=== PATIENT | male | born 1965 | race Caucasian/White ===

== ENCOUNTER 2020-12-02 15:08 | Observation (INO) ==
[2020-12-02] MEDS ORDERED: 0.9 % SODIUM CHLORIDE 1,000 ML IV ONE ×2 (15:16→16:34)
[2020-12-02] MEDS ORDERED: ONDANSETRON 4 MG ODT TABLET SL ONE (15:16)
--- NOTE | 2020-12-02 15:22 | Emergency Department Note ---
Fall HPI General Chief Complaint: Fall Stated Complaint: fell from ladder Time Seen by Provider: 12/02/20 15:10 Source: patient, family, RN notes reviewed and old records reviewed Mode of arrival: wheelchair Limitations: no limitations History of Present Illness HPI Narrative: Narrative: Articulate and pleasant 55-year-old male complains of lower back pain status post fall. He was getting off a ladder into a [place]lo[place] had a slip and fall approximately 8 to 12 feet falling onto his back hitting his head with positive loss of consciousness. Complains of a headache and lower back pain. He was able to ambulate with assistance and to his vehicle where his drove him to the emergency department. EMS was not used is that they do not have cell phone coverage and could not avail themselves to it. Patient denies any loss of bowel or bladder control or loss of motor control. Describes as a mechanical fall and denies any preceding illness. MD Complaint: fall Onset (ago): hour(s) (2) Fall From: from height (distance) (8-12) Fall Witnessed: no Place Fall Occurred: home Loss of Consciousness: yes Prolonged Down Time?: no Symptoms Prior to Fall: none Context: tripped/slipped Location of injury: head and back Severity: moderate Quality: sharp and aching Associated symptoms (after fall): Reports headache and other (lower back pain); Denies neck pain, numbness, weakness, chest pain, shortness of breath, abdominal pain, hematuria, unable to walk, lightheaded, vertigo and confusion Related Data Home Medications Medication Instructions Recorded Confirmed cholecalciferol (vitamin D3) 50 2,000 unit PO QDAY 05/27/18 06/07/19 mcg (2,000 unit) capsule magnesium oxide 400 mg PO BID cap 05/27/18 06/07/19 omega-3 fatty acids-vitamin E 1,000 mg PO BID cap 05/27/18 06/07/19 1,000 mg capsule Previous Rx's Medication Instructions Recorded olmesartan 20 1 tab PO QDAY #90 tab 06/07/19 mg-hydrochlorothiazide 12.5 mg tablet omeprazole 20 mg capsule,delayed 20 mg PO QDAY #90 cap 06/07/19 release tamsulosin 0.4 mg capsule 0.4 mg PO QDAY #90 cap 01/17/20 simvastatin 20 mg tablet 20 mg PO QDAY #30 tab 02/21/20 methocarbamol 750 mg PO Q8H PRN #14 tab 12/02/20 oxycodone-acetaminophen [Percocet] 1 tab PO Q4H PRN #14 tab 12/02/20 Allergies Allergy/AdvReac Type Severity Reaction Status Date / Time Penicillins AdvReac Unknown Unknown Verified 12/02/20 15:17 Review of Systems ROS ROS Narrative: Narrative: All systems ED: reviewed and negative except as stated. 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) Arthritis (Chronic) Joint pain (Chronic) Sleep related leg cramps (Chronic) Restless leg syndrome (Chronic) Elevated LDH (Chronic) Liver disease (Chronic) Essential hypertension (Chronic) Hyperlipidemia (Chronic) Hyperglyceridemia (Chronic) Hemorrhoids (Chronic) Exercise counseling (Chronic) Esophageal reflux (Chronic) Circadian rhythm sleep disorder, irregular sleep wake type (Chronic) Cerumen impaction (Chronic) Benign neoplasm of skin (Chronic) Back pain (Chronic) Other specified congenital anomaly of skin (Chronic) Urinary hesitancy (Chronic) Obesity (Chronic) Urinary stream slowing (Chronic) Medical History Arthritis >15 years Back pain Benign neoplasm of skin skin of upper limb, including shoulder Bronchitis, acute Cerumen impaction Chest pain Circadian rhythm sleep disorder, irregular sleep wake type Contusion, back Dysfunctions of sleep stages or arousal from sleep Elevated blood pressure reading without diagnosis of hypertension Elevated LDH Esophageal reflux 2000 Essential hypertension 2008 Exercise counseling Foot sprain Gastritis, acute Hemorrhoids Hyperglyceridemia Hyperlipidemia Influenza with other manifestations Joint pain 2013 Liver disease Obesity Other specified congenital anomaly of skin Poor sleep Restless leg syndrome Sleep apnea Sleep related leg cramps Urinary hesitancy Urinary stream slowing Surgical History H/O hand surgery 05/31/19 Dr. Mckoy, left thumb History of esophagogastroduodenoscopy (02/20/11) Hx of vasectomy Family History Father , age 75 Hypertension Diabetes mellitus Alzheimer's disease Myocardial Infarction Brother , age 57 (1 of 4 brothers) Cerebrovascular accident (CVA) Unknown Coronary artery disease Congenital anomaly of heart Peripheral Vascular Disease Mother Malignant neoplasm of brain Social History Smoking Status: Never smoker Alcohol Intake Frequency: a few times a week Substance Use: does not use Exam Narrative Narrative: Narrative: General Limitations: no limitations General appearance: Present alert and in distress Head Head: Present atraumatic, normocephalic and normal inspection Eye Eye: Present normal appearance, PERRL and EOMI; Absent scleral icterus and conjunctival injection ENT ENT: Present normal exam, normal oropharynx and mucous membranes moist Neck Neck: Present trachea midline and other (Placed in c-collar upon arrival); Absent lymphadenopathy and thyromegaly Chest Chest: Present normal inspection and symmetric chest wall rise; Absent tenderness Respiratory Respiratory: Present normal lung sounds bilaterally; Absent respiratory distress, wheezes, stridor, accessory muscle use and prolonged expiratory phase Cardiovascular Cardiovascular: Present regular rate and normal rhythm; Absent systolic murmur and diastolic murmur Adbominal Abdominal: Present soft; Absent distention, tenderness, guarding, rebound, rigidity, organomegaly and mass Extremities Extremities: Present normal inspection, full ROM and normal capillary refill; Absent tenderness, pedal edema, pretibial edema and calf tenderness Back Back: Present tenderness and L-S tenderness; Absent CVA tenderness (R), CVA tenderness (L) and spinous process tenderness Neurological Neurological: Present alert and oriented X3 Psychiatric Psychiatric: Present normal affect and normal mood Skin Skin: Present warm (WNL) and dry Course Vital Signs Vital signs: Vital Signs Temperature 98.2 F 12/02/20 15:09 Pulse Rate 93 H 12/02/20 15:09 Respiratory Rate 18 12/02/20 15:09 Blood Pressure 135/82 12/02/20 15:09 Pulse Oximetry (%) 95 12/02/20 15:09 Temperature 98.2 F 12/02/20 15:09 Pulse Rate 81 12/02/20 15:46 Respiratory Rate 15 12/02/20 15:46 Blood Pressure 136/89 12/02/20 15:46 Pulse Oximetry (%) 96 12/02/20 15:46 MDM MDM Narrative Medical decision making narrative: Narrative: Patient with LOC and lower back pain. LS spine is positive for disc protrusion but no fractures or traumatic changes of the head CT is also negative. Patient received IV fluids IV pain medicines at discharge diagnosis is closed head injury and lumbar strain. The patient will be discharged with a prescription for Percocet and Robaxin and to follow-up with PMD. Radiology Data Radiology results reviewed: Yes I reviewed the patient's radiology results. Radiology results narrative: Head CT IMPRESSION: Normal head CT without contrast. C-spine CT IMPRESSION: 1. No fracture or other posttraumatic change 2. Mild degeneration stable T Spine Normal LS Spine CT IMPRESSION: No fracture or posttraumatic change L5-S1 moderate broad disc protrusion and facet arthropathy resulting in mild central canal and bilateral IV foraminal narrowing. 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 only: No Clinical Impression: CHI (closed head injury) Qualifiers: Encounter type: initial encounter Qualified Code(s): S09.90XA - Unspecified injury of head, initial encounter Lumbosacral strain Qualifiers: Encounter type: initial encounter Qualified Code(s): S39.012A - Strain of muscle, fascia and tendon of lower back, initial encounter Activity: resume usual activities as tolerated Instructions: Head Injury (ED), Acute Low Back Pain (ED), Lower Back Exercises (ED) Patient Disposition: Home, Self-Care Condition: Fair Follow up with: Danyell Diaz ARNP [Primary Care Provider] - Prescriptions: New oxycodone-acetaminophen [Percocet] 5-325 mg tablet 1 tab PO Q4H PRN (Reason: pain) Qty: 14 RF: 0 methocarbamol 750 mg tablet 750 mg PO Q8H PRN (Reason: back pain) Qty: 14 RF: 0 No Action tamsulosin 0.4 mg capsule 0.4 mg PO QDAY Qty: 90 RF: 0 simvastatin 20 mg tablet 20 mg PO QDAY Qty: 30 RF: 0 magnesium oxide 400 mg capsule 400 mg PO BID RF: 0 cholecalciferol (vitamin D3) 2,000 unit capsule 2,000 unit PO QDAY RF: 0 omega-3 fatty acids-vitamin E 1,000 mg capsule 1,000 mg PO BID RF: 0 olmesartan-hydrochlorothiazide 20-12.5 mg tablet 1 tab PO QDAY Qty: 90 RF: 3 omeprazole 20 mg capsule,delayed release(DR/EC) 20 mg PO QDAY Qty: 90 RF: 4
[2020-12-02] MEDS ORDERED: ONDANSETRON 4 MG/2 ML VIAL IV ONE (15:24)
[2020-12-02] MEDS: morphine 2 MG/ML VIAL IV PRN ×5 (15:45→18:48)
--- NOTE | 2020-12-02 16:09 | Cat Scan Report ---
CLINICAL INFORMATION: Trauma COMPARISON: Head CT 07/12/2016 TECHNIQUE: 2.5 mm helical slices were obtained in the skull base to vertex. Following reconstruction, axial reformatted images were reviewed at bone and parenchymal windows. The exam was performed using radiation dose optimization techniques including, but not limited to, automated exposure control, adjustment of the mA and/or kV according to patient size and use of iterative reconstruction technique. FINDINGS: The ventricles, sulci, fissures, and cisterns are normal in size and configuration. No extra-axial fluid collections are identified. The cerebrum, brainstem and cerebellum are unremarkable. There is no evidence of hemorrhage, mass effect, or edema. Bone windows show no osseous abnormality. IMPRESSION: Normal head CT without contrast. Interpreted and Authenticated by: Pranav Jaramillo 12/02/20
--- NOTE | 2020-12-02 16:13 | Cat Scan Report ---
CLINICAL INFORMATION: Trauma COMPARISON: 07/01/2016 TECHNIQUE: 0.625 mm helical slices were obtained from the skull base through the superior T2 end plate, and following reconstruction, 2.5 mm sagittal, coronal and axial reformations were then processed. The exam was reviewed at bone and soft tissue windows. The exam was performed using radiation dose optimization techniques including, but not limited to, automated exposure control, adjustment of the mA and/or kV according to patient size and use of iterative reconstruction technique. FINDINGS: The cervical spine is normal in curvature and alignment. No fracture identified. The cervical cord is normal in contour and caliber without evidence of hemorrhage or other abnormality. No soft tissue abnormality. The C2-3, C3-4, and C4-5 disc levels are normal. At C5-6, mild broad disc protrusion mildly impinges the thecal sac. No change At C6-7 mild broad disc protrusion mildly impinges the thecal sac no change C7-T1 disc level is normal IMPRESSION: 1. No fracture or other posttraumatic change 2. Mild degeneration stable Interpreted and Authenticated by: Pranav Jaramillo 12/02/20
--- NOTE | 2020-12-02 16:15 | Cat Scan Report ---
CLINICAL INFORMATION: Trauma COMPARISON: None. TECHNIQUE: 2.5 mm helical slices were obtained from the mid C7 through the mid L1 vertebral bodies. Following reconstruction, 2.5 mm sagittal, coronal and axial reformations , with and without disc space angling, were processed. The exam was reviewed at bone and soft tissue windows. The exam was performed using radiation dose optimization techniques including, but not limited to, automated exposure control, adjustment of the mA and/or kV according to patient size and use of iterative reconstruction technique. FINDINGS: Sagittal and coronal reformatted images show the thoracic spine to be anatomically aligned. There is no fracture or other osseous abnormality. The thoracic cord is normal in contour and caliber without focal lesion. The soft tissues are normal. All disc levels are unremarkable - no evidence of protrusion. Central canal, lateral recesses and IV foramen are normal width at each level. IMPRESSION: Normal exam. Interpreted and Authenticated by: Pranav Jaramillo 12/02/20
--- NOTE | 2020-12-02 16:18 | Cat Scan Report ---
CLINICAL INFORMATION: Trauma COMPARISON: None. TECHNIQUE: 0.625 mm helical slices were obtained from the mid T12 through mid S2 vertebral bodies. Following reconstruction, 2.5 mm coronal, sagittal, and axial reformations (angle to the disc spaces) were processed. Exam was reviewed at bone and soft tissue windows.The exam was performed using radiation dose optimization techniques including, but not limited to, automated exposure control, adjustment of the mA and/or kV according to patient size and use of iterative reconstruction technique. FINDINGS: Lumbar spine is anatomically aligned. There is no fracture or other osseous abnormalities. Soft tissues are normal. The [id number] two L4-5 disc levels are normal. At L5-S1 moderate broad disc protrusion facet arthropathy result in mild central canal and bilateral IV foraminal narrowing. IMPRESSION: No fracture or posttraumatic change L5-S1 moderate broad disc protrusion and facet arthropathy resulting in mild central canal and bilateral IV foraminal narrowing. No definite root impingement Interpreted and Authenticated by: Pranav Jaramillo 12/02/20
[2020-12-02] MEDS ORDERED: METHOCARBAMOL 1,000 MG/10 ML VIAL IV ONE (17:33)
--- NOTE | 2020-12-02 19:40 | Internal Med History&Physical ---
HPI History of Present Illness Patient information: Note initiated : 12/02/20 at 7:33 pm Service Date, if different from initiated Date: Patient: Leo Allred 55 y/o M admitted on for fell from ladder. Chief Complaint: Fall from ladder 8-12 feet History of present illness: Mr. Allred is a 55 year old pleasant male with past medical history significant for hypertension, BPH brought to emergency room by his after he accidentally fell from the ladder of height 8-12 feet. Patient landed with his head and back. He thinks that he lost consciousness. Patient was able to walk to the weekend and brought to emergency room by his . In the emergency room trauma work-up showed no evidence of bony fracture/dislocation. CT scan of the head, cervical spine, thoracic and lumbar spine showed no evidence of broken bones. Patient was given IV morphine and his pain is not controlled. He is getting admitted for pain management and physical therapy. No nausea vomiting headache visual changes abdominal pain, hematuria. 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) Arthritis (Chronic) Joint pain (Chronic) Sleep related leg cramps (Chronic) Restless leg syndrome (Chronic) Elevated LDH (Chronic) Liver disease (Chronic) Essential hypertension (Chronic) Hyperlipidemia (Chronic) Hyperglyceridemia (Chronic) Hemorrhoids (Chronic) Exercise counseling (Chronic) Esophageal reflux (Chronic) Circadian rhythm sleep disorder, irregular sleep wake type (Chronic) Cerumen impaction (Chronic) Benign neoplasm of skin (Chronic) Back pain (Chronic) Other specified congenital anomaly of skin (Chronic) Urinary hesitancy (Chronic) Obesity (Chronic) Urinary stream slowing (Chronic) Medical History Arthritis >15 years Back pain Benign neoplasm of skin skin of upper limb, including shoulder Bronchitis, acute Cerumen impaction Chest pain Circadian rhythm sleep disorder, irregular sleep wake type Contusion, back Dysfunctions of sleep stages or arousal from sleep Elevated blood pressure reading without diagnosis of hypertension Elevated LDH Esophageal reflux 2000 Essential hypertension 2008 Exercise counseling Foot sprain Gastritis, acute Hemorrhoids Hyperglyceridemia Hyperlipidemia Influenza with other manifestations Joint pain 2013 Liver disease Obesity Other specified congenital anomaly of skin Poor sleep Restless leg syndrome Sleep apnea Sleep related leg cramps Urinary hesitancy Urinary stream slowing Surgical History H/O hand surgery 05/31/19 Dr. Mckoy, left thumb History of esophagogastroduodenoscopy (02/20/11) Hx of vasectomy Family History Father , age 75 Hypertension Diabetes mellitus Alzheimer's disease Myocardial Infarction Brother , age 57 (1 of 4 brothers) Cerebrovascular accident (CVA) Unknown Coronary artery disease Congenital anomaly of heart Peripheral Vascular Disease Mother Malignant neoplasm of brain Social History marital status: physical activity: none alcohol intake frequency: a few times a week substance use type: does not use MEDS/ALLERGIES Home Medications and Allergies Home Medications Medication Instructions Recorded Confirmed Type omeprazole 20 mg capsule,delayed 20 mg PO QDAY #90 cap 06/07/19 12/02/20 Rx release tamsulosin 0.4 mg capsule 0.4 mg PO QDAY #90 cap 01/17/20 12/02/20 Rx simvastatin 20 mg tablet 20 mg PO QDAY #30 tab 02/21/20 12/02/20 Rx methocarbamol 750 mg PO Q6H PRN #14 tab 12/02/20 Rx methocarbamol 750 mg PO Q8H PRN #14 tab 12/02/20 Rx oxycodone-acetaminophen [Percocet] 1 tab PO Q4H PRN #14 tab 12/02/20 Rx oxycodone-acetaminophen [Percocet] 1 tab PO Q4H PRN #14 tab 12/02/20 Rx Allergies Allergy/AdvReac Type Severity Reaction Status Date / Time Penicillins AdvReac Unknown Unknown Verified 12/02/20 15:17 EXAM Constitutional Vitals: Temp Pulse Resp BP Pulse Ox 98.2 F 81 15 136/89 96 12/02/20 15:09 12/02/20 15:46 12/02/20 15:46 12/02/20 15:46 12/02/20 15:46 General appearance: cooperative, no acute distress (Pleasant man laying in the bed in no distress. He talks full sentences.) and obese (BMI 39.) Head Head exam: Present atraumatic, normal inspection and normocephalic Eye Eye exam: Present EOMI, normal appearance and PERRL Neck Neck exam: Present full ROM and normal inspection Respiratory Respiratory exam: Present normal respiratory exam and CTAB Cardiovascular Cardiovascular exam: Present normal rate and rhythm, +S1 and +S2; Absent diastolic murmur and systolic murmur GI/Abdominal GI/Abdominal exam: Present normal bowel sounds and soft; Absent hernia, mass, rebound and tenderness Extremities Exam Extremities exam: Present full ROM, normal capillary refill, normal inspection and neurovascular intact (No evidence of dislocation, deformity, bruises.); Absent calf tenderness, joint swelling and tenderness Back Exam Back exam: Present full ROM Neurological Exam Neurological exam: Present alert, CN II-XII intact, oriented X3 and reflexes normal Psychiatric Psychiatric exam: Present normal affect and normal mood Skin Skin exam: Present dry, normal color and warm A/P Narrative A/P Narrative: Pleasant 55 years old male who accidentally fell from ladder 8-12 feet admitted for pain control. #Mechanical fall from 8-12 feet ladder -Loss of consciousness per patient. Physical exam unremarkable with no evidence of bony fracture, dislocation. - CT head, CT cervical spine, thoracic spine, lumbar spine no evidence of acute abnormality. -Pain control, IV fluid, physical therapy. -CPK normal limits. Recheck in the morning #Hypertension: Resume home medication #BPH: Resume home Flomax #GERD: Resume home omeprazole DVT PPX: Lovenox 40mg daily Code Status : Full code Disposition: Observation Plan of care discussed with patient and his as well as RN Time Spent With Patient Time: Total time spent is greater than 50% in coordination of care (as documented) at patient's floor/unit and/or counseling patient:
[2020-12-02] MEDS ORDERED: ONDANSETRON 4 MG/2 ML VIAL IV PRN (20:14)
[2020-12-02] MEDS ORDERED: HYDROmorphone 0.5 MG/0.5 ML SYRINGE IV PRN (20:14)
[2020-12-02] MEDS ORDERED: ACETAMINOPHEN 325 MG TABLET PO PRN (20:14)
[2020-12-02] MEDS ORDERED: ONDANSETRON 4 MG ODT TABLET SL PRN (20:14)
[2020-12-02] MEDS ORDERED: CALCIUM CARBONATE 500 MG TAB.CHEW CHEWED PRN (20:14)
[2020-12-02] MEDS ORDERED: METHOCARBAMOL 500 MG TABLET PO PRN (20:14)
[2020-12-02] MEDS: IBUPROFEN 600 MG TABLET PO PRN (20:52)
[2020-12-02] MEDS: oxyCODONE HCL 5 MG TABLET PO PRN (20:53)
[2020-12-02] MEDS: DOCUSATE SODIUM 100 MG CAPSULE PO SCH (20:53)
[2020-12-02] MEDS: 0.9 % SODIUM CHLORIDE 10 ML SYRINGE IV SCH (20:58)
[2020-12-02] MEDS ORDERED: SENNOSIDES 1 TABLET PO SCH (21:00)
[2020-12-03] MEDS: IBUPROFEN 600 MG TABLET PO PRN ×2 (04:40→13:48)
[2020-12-03] MEDS: 0.9 % SODIUM CHLORIDE 1,000 ML IV SCH (04:40)
[2020-12-03] MEDS: 0.9 % SODIUM CHLORIDE 10 ML SYRINGE IV SCH (04:41)
[2020-12-03 06:56] LABS: Creatine Kinase 232 U/L (24-195)
[2020-12-03 07:15] LABS: Blood Urea Nitrogen 10 mg/dL (6-20); Calcium 8.6 mg/dL (8.6-10.4); Carbon Dioxide 23 mmol/L (22-30); Chloride 105 mmol/L (96-108); Glomerular Filtration Rate 101; Glucose 109 mg/dL (70-105)
[2020-12-03] MEDS: DOCUSATE SODIUM 100 MG CAPSULE PO SCH (09:43)
[2020-12-03] MEDS: oxyCODONE HCL 5 MG TABLET PO PRN (09:43)
--- NOTE | 2020-12-03 12:09 | Discharge Summary ---
Discharge Provider Provider Patient information: Note initiated : 12/03/20 at 12:07 pm Service Date, if different from initiated Date: Patient: Leo Allred 55 y/o M admitted on 12/02/20 for fell from ladder. Chief Complaint: Fall from ladder 8-12 feet Date of admission: 12/02/20 20:11 Discharge date: 12/03/20 Primary care physician: Danyell Diaz Consults: 12/02/20 Consult to Physician [CONS] Stat Comment: Consulting Provider: Hammad Hillman Reason For Exam: Physician to Consult Discharge Meds Discharge Medications Home Medications omeprazole 20 mg capsule,delayed release 20 mg PO QDAY #90 cap 06/07/19 [Rx Confirmed 12/03/20 Last Taken 12/02/20 08:00] tamsulosin 0.4 mg capsule 0.4 mg PO QDAY #90 cap 01/17/20 [Rx Confirmed 12/03/20 Last Taken 12/02/20 08:00] simvastatin 20 mg tablet 20 mg PO QDAY #30 tab 02/21/20 [Rx Confirmed 12/03/20 Last Taken 12/02/20 08:00] methocarbamol 750 mg PO Q6H PRN #14 tab 12/02/20 [Rx Last Taken Unknown] methocarbamol 750 mg PO Q8H PRN #14 tab 12/02/20 [Rx Last Taken Unknown] oxycodone-acetaminophen [Percocet] 1 tab PO Q4H PRN #14 tab 12/02/20 [Rx Last Taken Unknown] oxycodone-acetaminophen [Percocet] 1 tab PO Q4H PRN #14 tab 12/02/20 [Rx Last Taken Unknown] COURSE Hospital Course Hospital course: Pleasant 55 years old male who accidentally fell from ladder 8-12 feet admitted for pain control. Patient remained hemodynamically stable. His hospital course is as following: #Mechanical fall from 8-12 feet ladder -Loss of consciousness per patient. Physical exam unremarkable with no evidence of bony fracture, dislocation. - CT head, CT cervical spine, thoracic spine, lumbar spine no evidence of acute abnormality. -Pain control, IV fluid, physical therapy. -CPK normal limits. Recheck in the morning 240. Treated with IV fluids at 125/h. Advised patient to keep himself hydrated with at least 4 L of fluid a day. Renal function remained normal -Patient was seen and cleared by physical therapy. Discharge home with outpatient follow-up with PCP #Hypertension: Resume home medication #BPH: Resume home Flomax #GERD: Resume home omeprazole Disposition: Patient discharged home Condition on discharge: Hemodynamically stable. Tolerated p.o. Discharge activity: As tolerated Discharge diet: Healthy, low-fat Discharge medication: See med reconciliation form Discharge follow-up: Primary care physician within 1 week for post hospital follow-up Discharge diagnosis: Fall from ladder Time Spent with Patient Time attestation: Total time spent providing and/or coordinating discharge services: EXAM Constitutional Vitals: Temp Pulse Resp BP Pulse Ox 97.8 F 71 20 149/76 94 12/03/20 11:44 12/03/20 11:44 12/03/20 11:44 12/03/20 11:44 12/03/20 11:44 Additional findings Additional findings: General: Awake alert oriented x3. No apparent distress. Obesity with BMI 41 HEENT: PERRLA, moist mucous membrane. Anicteric sclera Lungs: Clear to auscultation bilaterally. No crackles rhonchi or rales. Cardiovascular: Regular rate and rhythm. S1 + S2, no murmur gallop rub. No peripheral edema. No JVD GI: Abdomen soft, nontender, positive bowel sounds. No hepatosplenomegaly. No rebound tenderness. 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 Cranial nerves II through XII 12 grossly intact. Psychiatric: Normal mood and affect Discharge Data Data Completed and Pending Labs on day of discharge: Labs from last 24 hours 12/03/20 12/03/20 06:14 06:14 Sodium 137 Potassium 3.9 Chloride 105 Carbon Dioxide 23 Anion Gap 9.0 BUN 10 Creatinine 0.8 GFR Calculation 101 Glucose 109 H Calcium 8.6 Total Creatine Kinase 232 H Discharge Plan Patient/Caregiver Discharge Instructions Activity: resume usual activities as tolerated Diet: Regular Diet Instructions: Oxycodone/Acetaminophen (By mouth), Head Injury (DC), Chronic Back Pain (DC), Lower Back Exercises (GEN) Activity Restrictions/Additional Instructions: Resume home diet as tolerated. Increase activity as tolerated. Continue fall precautions. Follow-up with Danyell Diaz. Contact the office on Tuesday 12/05 to schedule Take all medication as directed. Pain medication can cause constipation; take an over the counter stool softener and/or laxative while on pain medication. 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 Return to ER for fever, chills, uncontrolled pain, inability to urinate or have a bowel movement, nausea and/or vomiting, swelling, redness, signs of infection, shortness of breath, chest pain, return of symptoms, or other acute symptom This discharge packet is provided to you to help keep you informed about your care. We want to ensure you get everything you need when you go home. You will also be receiving a call from us in a few days to follow up with you and see how you are doing since your discharge. This gives us a chance to listen to any concerns you maybe experiencing since you were discharged or any additional needs you may have, as well as providing us feedback on your care experience. We strive to always provide excellent care and thank you for your feedback and for choosing [facility]. Prescriptions: New oxycodone-acetaminophen [Percocet] 5-325 mg tablet 1 tab PO Q4H PRN (Reason: pain) Qty: 14 RF: 0 methocarbamol 750 mg tablet 750 mg PO Q8H PRN (Reason: back pain) Qty: 14 RF: 0 methocarbamol 750 mg tablet 750 mg PO Q6H PRN (Reason: back pain) Qty: 14 RF: 0 oxycodone-acetaminophen [Percocet] 5-325 mg tablet 1 tab PO Q4H PRN (Reason: pain) Qty: 14 RF: 0 Continued tamsulosin 0.4 mg capsule 0.4 mg PO QDAY Qty: 90 RF: 0 simvastatin 20 mg tablet 20 mg PO QDAY Qty: 30 RF: 0 omeprazole 20 mg capsule,delayed release(DR/EC) 20 mg PO QDAY Qty: 90 RF: 4 Follow Up Plan Follow up with: Danyell Diaz ARNP [Primary Care Provider] - (Contact the office on Tuesday 12/05 to schedule) Patient Disposition: Home, Self-Care Prognosis: Fair Discharge Orders: Discharge Order (Routine); Ordered 12/03/20 Ordered By: Hammad SO VTE Deep Vein Thrombosis/Pulmonary Embolism Present on Admission: No
== END 2020-12-03 13:50 | disposition home or self-care (01) ==
LOC: ED 15:08 → MEDSUR 15:08
PROVIDERS: ADMIT Internal Medicine; ATTEND Internal Medicine